=== PATIENT | male | born 1975 | race Caucasian/White ===

== ENCOUNTER 2017-08-31 13:53 | Emergency (ER) | payer OTHER ==
[~2017-08-31] VITALS: Ht 172.7 cm; Wt 84.0 kg
[2017-08-31] MEDS ORDERED: cephalexin 500mg capsule PO ONE (14:05)
[2017-08-31] MEDS ORDERED: sulfamethoxazole/trimethoprim DS (800/160mg) tablet PO ONE (14:05)
[2017-08-31] MEDS ORDERED: TETanus/Pertussis (Acell)/Diphther VAC/PF (Tdap-Adult) 0.5ml syringe IM ONE (14:20)
[2017-08-31] MEDS ORDERED: BACDS PO (14:24)
[2017-08-31] MEDS ORDERED: CEPH-572 PO (14:24)
[2017-08-31 16:06] VITALS: BP 149/103
== END 2017-08-31 16:08 | disposition home or self-care (01) ==
LOC: ER 13:54
DX: L03.317 Cellulitis of buttock (principal); F17.200 Nicotine dependence, unspecified, uncomplicated; Z79.899 Other long term (current) drug therapy
CPT/HCPCS: 90471; 90715; 99283

== ENCOUNTER 2023-05-08 09:38 | Observation (INO) | payer BC, OTHER ==
[~2023-05-08] VITALS: Ht 175.3 cm; Wt 88.1 kg
[2023-05-08 13:15] LABS: APTT 28 SECONDS (22-32); INR 1.1 INR; PROTHROMBIN TIME 11.4 SECONDS (9.0-12.0)
[2023-05-08 13:19] LABS: BASOPHILS # (AUTO) 0.1 X10'3 (0-0.2); BASOPHILS % (AUTO) 0.6 % (0-1); LYMPHOCYTES # (AUTO) 3.2 X10'3 (1.1-4.8); LYMPHOCYTES % (AUTO) 26.2 % (21-51)
[2023-05-08 13:21] LABS: EOSINOPHILS # (AUTO) 0.1 X10'3 (0-0.9); EOSINOPHILS % (AUTO) 0.4 % (0-6); HEMATOCRIT 46.1 % (42.0-52.0); HEMOGLOBIN 15.9 g/dl (14.0-17.9); MEAN CORPUSCULAR HEMOGLOBIN 30.4 PG (27.0-31.0); MEAN CORPUSCULAR HGB CONC 34.4 g/dL (33.0-36.5); MEAN CORPUSCULAR VOLUME 88.4 FL (78-98); MEAN PLATELET VOLUME 9.2 FL (7.4-10.4); NEUTROPHILS % (AUTO) 64.8 % (42-75); PLATELET COUNT 334 X10'3 (140-440); RED BLOOD COUNT 5.22 X10'6 (4.70-6.10); RED CELL DISTRIBUTION WIDTH 13.2 % (11.5-14.5); WHITE BLOOD COUNT 12.4 X10'3 (4.5-11.0)
[2023-05-08 13:27] LABS: ALANINE AMINOTRANSFERASE 30 U/L (12-78); ALBUMIN 3.9 G/DL (3.4-5.0); ALKALINE PHOSPHATASE 42 IU/L (46-116); ANION GAP 11 (8-16); ASPARTATE AMINO TRANSFERASE 22 U/L (10-37); BILIRUBIN,TOTAL 1.3 MG/DL (0.1-1.0); BLOOD UREA NITROGEN 22 MG/DL (7-18); BUN/CREATININE RATIO 11.4 (10.0-20.0); CHLORIDE 91 MMOL/L (99-107); CREATININE 1.93 MG/DL (0.60-1.10); GLUCOSE 85 MG/DL (70-104); POTASSIUM 3.8 MMOL/L (3.5-5.1); SODIUM 128 MMOL/L (135-145); TOTAL CARBON DIOXIDE 26.4 MMOL/L (24-32); TOTAL PROTEIN 7.9 G/DL (6.4-8.2); eCRCL 48 ML/MIN; eGFR 38 ML/MIN
[2023-05-08 13:29] LABS: PRO BRAIN NATRIURETIC PEPTIDE < 30 PG/ML (0-125)
[2023-05-08 14:36] LABS: BILIRUBIN,URINE SMALL (Neg); CLARITY,URINE SLIGHTLY CLOUDY (Clear); COLOR,URINE YELLOW (Yellow); GLUCOSE, URINE NEGATIVE (Neg); KETONES,URINE 15 mg/dl (Neg); LEUKOCYTE ESTERASE ,URINE NEGATIVE (Neg); NITRITES, URINE NEGATIVE (Neg); OCCULT BLOOD,URINE NEGATIVE (Neg); PH,URINE 5.5 (4.8-8.0); PROTEIN,URINE TRACE mg/dl (Neg); UROBILINOGEN,URINE 0.2 E.U/dL (0.2-1.0)
[2023-05-08 14:56] LABS: UA COLLECTION TYPE CLN CATCH MIDSTREAM
[2023-05-08 14:57] LABS: HYALINE CASTS >30 /LPF (NEGATIVE)
[2023-05-08 14:58] LABS: BACTERIA,URINE FEW /HPF (Neg); FINE GRANULAR CAST 0-3 /LPF (NEGATIVE); MUCUS STRANDS FEW /LPF (Neg); RBC,URINE NONE SEEN /HPF (0-2); SQUAMOUS EPITHELIAL CELL,UR FEW /LPF (FEW)
[2023-05-08] MEDS: normal saline 1000ml 1,000 ML IV ONE (15:59)
[2023-05-08] MEDS ORDERED: ESCI-8 PO (16:27)
[2023-05-08] MEDS ORDERED: CARV3.122 PO (16:27)
[2023-05-08] MEDS ORDERED: ESOM40CA54 PO (16:27)
[2023-05-08] MEDS ORDERED: OLME-9 PO (16:27)
[2023-05-08] MEDS ORDERED: BUPR-317 PO (16:27)
[2023-05-08] MEDS ORDERED: ZOLP10TA PO (16:27)
[2023-05-08] MEDS: normal saline 1000ml 1,000 ML IV SCH (18:20)
[2023-05-08] MEDS ORDERED: magnesium 4gm in 100ml NS 100 ML IV PRN (18:20)
[2023-05-08] MEDS ORDERED: potassium Cl 40MEQ/1/2NS 520ml 520 ML IV PRN (18:20)
[2023-05-08] MEDS ORDERED: magnesium hydroxide 30ml (MOM) UD suspension PO PRN (18:20)
[2023-05-08] MEDS ORDERED: potassium Cl 20 mEq SR tablet PO PRN ×2 (18:20)
[2023-05-08] MEDS ORDERED: ondansetron/PF 4mg/2ml inj IV PRN (18:20)
[2023-05-08] MEDS ORDERED: acetaminophen 325mg tablet PO PRN (18:20)
[2023-05-08] MEDS ORDERED: magnesium Cl slow-release 64mg tablet PO PRN (18:20)
[2023-05-08] MEDS ORDERED: mag hydrox/Alum hydrox/simeth 30ml oral suspension PO PRN (18:20)
[2023-05-08] MEDS ORDERED: magnesium 2GM in 50ml NS 50 ML IV PRN (18:20)
[2023-05-08] MEDS ORDERED: LORazepam 2 mg/ml vial IV PRN (18:35)
[2023-05-08] MEDS ORDERED: dextrose 50%-water 50ml dispensing syringe IV PRN (18:35)
[2023-05-08] MEDS ORDERED: haloperidol 5mg tablet PO PRN (18:35)
[2023-05-08] MEDS ORDERED: haloperidol lactate 5mg/ml inj IM PRN (18:35)
[2023-05-08] MEDS ORDERED: LORazepam 1 MG tablet PO PRN (18:35)
[2023-05-08] MEDS: normal saline 1000ml 1,000 ML IVB ONE (19:13)
[2023-05-08 19:31] LABS: HEMOGLOBIN A1C 5.6 % (4.5-6.2)
[2023-05-08] MEDS: folic acid 1mg/0.2ml inj IV SCH (19:36)
[2023-05-08 19:38] LABS: CHOL/HDL RATIO 5.5 (0.00-4.99); CHOLESTEROL 214 MG/DL (0-200); HDL CHOLESTEROL 39 MG/DL (35-60); LDL CHOLESTEROL 141 MG/DL (50-100); MAGNESIUM 2.4 MG/DL (1.5-2.4); POTASSIUM 3.6 MMOL/L (3.5-5.1); THYROID STIMULATING HORMONE 1.72 ulU/ml (0.34-4.50); TRIGLYCERIDES 81 MG/DL (20-135)
[2023-05-08] MEDS: enoxaparin 40mg/0.4ml syringe SQ SCH (20:00)
[2023-05-08] MEDS: K and/or MAG REPLACEMENT MC SCH (20:00)
[2023-05-08] MEDS: carVEDilol 3.125mg tablet PO SCH (20:00)
[2023-05-08 21:52] VITALS: BP 104/75; PULSE 65; RESP 17; TEMP 97.7; O2SAT 99
[2023-05-08 21:53] VITALS: BP_SYST 104; BP_SYST 113; BP_SYST 116; BP_DIAS 71; BP_DIAS 75; PULSE 61; PULSE 70; PULSE 75
[2023-05-08] MEDS: thiamine 100mg/ml 2ml inj. IV SCH (22:00)
[2023-05-08 22:01] VITALS: RESP 18; O2SAT 96
[2023-05-09 02:00] VITALS: BP 106/67; PULSE 70; RESP 15; TEMP 97.8; O2SAT 100
[2023-05-09 06:14] LABS: BASOPHILS % (AUTO) 0.5 % (0-1); EOSINOPHILS # (AUTO) 0.1 X10'3 (0-0.9); EOSINOPHILS % (AUTO) 1.3 % (0-6); HEMATOCRIT 40.8 % (42.0-52.0); HEMOGLOBIN 13.6 g/dl (14.0-17.9); LYMPHOCYTES # (AUTO) 2.9 X10'3 (1.1-4.8); LYMPHOCYTES % (AUTO) 38.5 % (21-51); MEAN CORPUSCULAR HEMOGLOBIN 29.8 PG (27.0-31.0); MEAN CORPUSCULAR HGB CONC 33.4 g/dL (33.0-36.5); MEAN CORPUSCULAR VOLUME 89.2 FL (78-98); MEAN PLATELET VOLUME 9.1 FL (7.4-10.4); MONOCYTES # (AUTO) 0.7 X10'3 (0-0.9); MONOCYTES % (AUTO) 9.9 % (2-12); NEUTROPHILS # (AUTO) 3.8 X10'3 (1.8-7.7); NEUTROPHILS % (AUTO) 49.8 % (42-75); PLATELET COUNT 256 X10'3 (140-440); RED BLOOD COUNT 4.57 X10'6 (4.70-6.10); WHITE BLOOD COUNT 7.5 X10'3 (4.5-11.0)
[2023-05-09 06:27] LABS: ALANINE AMINOTRANSFERASE 25 U/L (12-78); ALBUMIN 3.1 G/DL (3.4-5.0); ALKALINE PHOSPHATASE 32 IU/L (46-116); ANION GAP 4 (8-16); ASPARTATE AMINO TRANSFERASE 11 U/L (10-37); BILIRUBIN,TOTAL 0.6 MG/DL (0.1-1.0); BLOOD UREA NITROGEN 19 MG/DL (7-18); BUN/CREATININE RATIO 13.8 (10.0-20.0); CALCIUM 7.9 MG/DL (8.5-10.1); CHLORIDE 101 MMOL/L (99-107); CREATININE 1.38 MG/DL (0.60-1.10); GLUCOSE 87 MG/DL (70-104); MAGNESIUM 2.2 MG/DL (1.5-2.4); POTASSIUM 3.9 MMOL/L (3.5-5.1); SODIUM 134 MMOL/L (135-145); TOTAL CARBON DIOXIDE 28.9 MMOL/L (24-32); TOTAL PROTEIN 6.3 G/DL (6.4-8.2); eCRCL 67 ML/MIN; eGFR 55 ML/MIN
[2023-05-09 07:23] VITALS: BP 94/54; PULSE 64; RESP 19; TEMP 97.3; O2SAT 98
[2023-05-09] MEDS: buPROPion SR 150mg tablet PO SCH (08:47)
[2023-05-09] MEDS: pantoprazole 40mg Tablet.DR PO SCH (08:47)
[2023-05-09] MEDS: ESCITALOPRAM 10 mg tablet 10 MG TABLET PO SCH (08:47)
[2023-05-09 12:20] VITALS: BP 123/82; PULSE 68; RESP 14; TEMP 97.8; O2SAT 99
[2023-05-09 14:00] VITALS: RESP 16; O2SAT 96
[2023-05-11] MEDS ORDERED: folic acid 1mg tablet PO SCH (08:00)
[2023-05-12] MEDS ORDERED: thiamine 100mg tablet PO SCH (08:00)
== END 2023-05-09 13:30 | disposition home or self-care (01) ==
LOC: ER 09:39 → ED HOLD 17:28 → EDBEDREQ 21:02 → PCU 3S 21:43
PROVIDERS: ADMIT Family Medicine; ATTEND Family Medicine
DX: I95.9 Hypotension, unspecified (principal); E86.0 Dehydration; E87.1 Hypo-osmolality and hyponatremia; N17.0 Acute kidney failure with tubular necrosis; I10 Essential (primary) hypertension; D72.829 Elevated white blood cell count, unspecified; K76.0 Fatty (change of) liver, not elsewhere classified; F10.91 Alcohol use, unspecified, in remission; Z79.899 Other long term (current) drug therapy
CPT/HCPCS: 36415; 70450; 71045; 80053; 80061; 81001; 82948; 83036; 83735; 83880; 84100; 84132; 84443; 84484; 85025; 85610; 85730; 87081; 87088; 93005; 96361; 96372; 96374; 96375; 96376; 99285; G0378; J1650; J3411; J3490; J7030